=== PATIENT | female | born 1950 | race Caucasian/White ===

== ENCOUNTER → 2017-07-14 | Outpatient (CLI) | payer OTHER, MEDICARE ==
[~2017-07-14] MED LIST: OMNIPAQUE 350 MG/ML, 100ML BOTTLE ONE
== END | disposition home or self-care (01) ==
LOC: RAD 12:17
PROVIDERS: ATTEND Nurse Practitioner Family
DX: K44.9 Diaphragmatic hernia without obstruction or gangrene (principal); J84.9 Interstitial pulmonary disease, unspecified; K57.30 Diverticulosis of large intestine without perforation or abscess without bleeding; D50.9 Iron deficiency anemia, unspecified; Z86.2 Personal history of diseases of the blood and blood-forming organs and certain disorders involving the immune mechanism
CPT/HCPCS: 71260; 74177; Q9967

== ENCOUNTER → 2017-08-11 | Outpatient (CLI) | payer OTHER, MEDICARE ==
[~2017-08-11] MED LIST changes: +LEVO50TA5 PO; -OMNIPAQUE 350 MG/ML, 100ML BOTTLE ONE; +PANT40TA5 PO; +SUCR1TAB PO
== END | disposition home or self-care (01) ==
LOC: STAR 10:28
PROVIDERS: ATTEND Thoracic Surgery (Cardiothoracic Vascular Surgery)
DX: Z01.818 Encounter for other preprocedural examination (principal)
CPT/HCPCS: 93005

== ENCOUNTER 2017-08-24 06:05 | Observation (INO) | payer OTHER, MEDICARE ==
[2017-08-11 11:02] VITALS: BP 139/88
[~2017-08-24] VITALS: Ht 162.6 cm; Wt 70.0 kg
[2017-08-24] MEDS ORDERED: BUPIVACAINE/PF-EPI 0.5% 1:200K ONE (06:47)
[2017-08-24] MEDS ORDERED: GABAPENTIN 300 MG CAPSULE PO ONE (07:00)
[2017-08-24] MEDS ORDERED: OXYcodone IR 5MG TABLET PO ONE (07:00)
[2017-08-24] MEDS ORDERED: SCOPOLAMINE PATCH, 1.5MG PATCH.TD72 TD ONE (07:00)
[2017-08-24] MEDS ORDERED: ONDANSETRON ODT 8 MG PO ONE (07:00)
[2017-08-24] MEDS ORDERED: FAMOTIDINE 20 MG TABLET PO ONE (07:00)
[2017-08-24] MEDS ORDERED: ACETAMINOPHEN 500 MG TABLET PO ONE (07:00)
[2017-08-24] MEDS ORDERED: MIDAZOLAM 1 MG/ML, 2ML ONE (07:15)
[2017-08-24] MEDS ORDERED: FENTANYL PF 100 MCG/2ML ONE ×2 (07:15→09:12)
[2017-08-24] MEDS: LACTATED RINGERS 1,000 ML IV SCH ×5 (07:18→14:21)
[2017-08-24] MEDS ORDERED: CEFAZOLIN 1,000 MG ONE (07:22)
[2017-08-24] MEDS ORDERED: SUCCINYLCHOLINE 20 MG/ML, 10ML ONE (07:22)
[2017-08-24] MEDS ORDERED: PROPOFOL 10 MG/ML, 20ML ONE (07:22)
[2017-08-24] MEDS ORDERED: DEXAMETHASONE 4 MG/ML, 1ML ONE (07:22)
[2017-08-24] MEDS ORDERED: ROCURONIUM 10 MG/ML,10ML ONE (07:22)
[2017-08-24] MEDS ORDERED: LABETALOL 5MG/ML, 20ML IV PRN (08:00)
[2017-08-24] MEDS ORDERED: OXYcodone 5 MG/5 ML ORAL.SOL UDC PO PRN (08:00)
[2017-08-24] MEDS ORDERED: ALBUTEROL SULFATE 2.5 MG/3 ML NPPB PRN (08:00)
[2017-08-24] MEDS ORDERED: hydrALAzine 20 MG/ML, 1ML IV PRN ×2 (08:00→09:00)
[2017-08-24] MEDS ORDERED: MIDAZOLAM 1 MG/ML, 2ML IV PRN (08:00)
[2017-08-24] MEDS ORDERED: ONDANSETRON 2MG/ML, 2ML IV PRN (08:00)
[2017-08-24] MEDS ORDERED: MEPERIDINE/PF 25MG/0.5ML IVPush PRN (08:00)
[2017-08-24] MEDS ORDERED: EPHEDRINE 50 MG/ML, 1ML IVPush PRN (08:00)
[2017-08-24] MEDS ORDERED: PROMETHAZINE 25 MG/ML, 1ML IV PRN (08:00)
[2017-08-24] MEDS ORDERED: HYDROcodone/APAP 7.5-325MG/15ML UDC PO PRN (08:00)
[2017-08-24] MEDS ORDERED: PROMETHAZINE 25 MG/ML, 1ML IM PRN (09:00)
[2017-08-24] MEDS ORDERED: PROMETHAZINE 12.5 MG SUPP PR PRN (09:00)
[2017-08-24] MEDS: LEVOTHYROXINE 50 MCG TABLET PO SCH (09:00)
[2017-08-24] MEDS ORDERED: morphine SULFATE 10 MG/ML, 1ML IV PRN (09:00)
[2017-08-24] MEDS ORDERED: LORazepam 2 MG/ML, 1ML IV PRN (09:00)
[2017-08-24] MEDS: PANTOPRAZOLE 40 MG IV IVPush SCH (09:00)
[2017-08-24] MEDS ORDERED: ENALAPRILAT 1.25 MG/ML, 2ML IV PRN (09:00)
[2017-08-24] MEDS ORDERED: DIPHENHYDRAMINE 50 MG/ML, 1ML IV PRN (09:00)
[2017-08-24] MEDS: FENTANYL PF 100 MCG/2ML IV PRN ×2 (09:13→09:19)
[2017-08-24] MEDS ORDERED: OXYcodone 5 MG/5 ML ORAL.SOL UDC ONE (09:27)
[2017-08-24] MEDS ORDERED: HYDROmorphone 2 MG/ML, 1ML ONE (09:27)
[2017-08-24] MEDS: HYDROmorphone 1 MG/ML, 1ML IV PRN ×2 (09:29→09:40)
[2017-08-24] MEDS: HYDROcodone/APAP 7.5-325MG/15ML UDC PO PRN ×3 (12:36→20:52)
[2017-08-24 13:47] VITALS: BP 144/99
[2017-08-24] MEDS: ONDANSETRON 2MG/ML, 2ML IVPush PRN ×2 (14:20→20:57)
[2017-08-24 20:00] VITALS: BP 136/79
[2017-08-25 04:00] VITALS: BP 114/69
[2017-08-25] MEDS: LACTATED RINGERS 1,000 ML IV SCH (07:40)
[2017-08-25 07:55] VITALS: BP 125/82
[2017-08-25] MEDS: LEVOTHYROXINE 50 MCG TABLET PO SCH (08:12)
[2017-08-25] MEDS: PANTOPRAZOLE 40 MG IV IVPush SCH (08:12)
[2017-08-25] MEDS ORDERED: ENOXAPARIN 40 MG/0.4 ML SQ SCH (09:00)
[2017-08-25] MEDS ORDERED: HYDR473S51 PO (10:08)
== END 2017-08-25 10:42 | disposition home or self-care (01) ==
LOC: OUT 06:05 → ORIP 08:48 → 4NOR 10:14 → DCLOUNGE 08-25 10:30
PROVIDERS: ADMIT Thoracic Surgery (Cardiothoracic Vascular Surgery); ATTEND Thoracic Surgery (Cardiothoracic Vascular Surgery)
DX: K44.9 Diaphragmatic hernia without obstruction or gangrene (principal)
CPT/HCPCS: 43282; 96372; 96374; 96375; 96376; C9113; G0378; J0330; J0690; J1100; J1170; J1650; J2250; J2405; J2704; J3010; J7120; Q0162; Q4116

== ENCOUNTER → 2020-02-20 | Outpatient (CLI) | payer MEDICARE, OTHER ==
[~2020-02-20] MED LIST changes: +HYDR473S51 PO; -PANT40TA5 PO; +PANT40TA6 PO
== END | disposition home or self-care (01) ==
LOC: CFH 09:11
DX: Z13.820 Encounter for screening for osteoporosis (principal); M85.88 Other specified disorders of bone density and structure, other site; N95.9 Unspecified menopausal and perimenopausal disorder
CPT/HCPCS: 77080